=== PATIENT | male | born 2000 | race African-American/Black ===

== ENCOUNTER 2025-08-09 17:01 | Emergency (ER) | payer MEDICAID, OTHER ==
[~2025-08-09] VITALS: Ht 175.3 cm; Wt 75.0 kg
[2025-08-09 17:17] VITALS: BP 141/63; TEMP 37.1; O2SAT 100
[2025-08-09 17:29] VITALS: PULSE 68; RESP 18; O2SAT 99
== END 2025-08-09 20:37 | disposition left against medical advice (07) ==
LOC: ER 17:01
DX: R10.20 Pelvic and perineal pain unspecified side (principal)
CPT/HCPCS: 99281